=== PATIENT | male | born 1995 | race Native Hawaiian/Other Pacific Islander ===

== ENCOUNTER 2017-04-26 11:55 | Observation (INO) | payer MEDICAID, OTHER ==
--- NOTE | 2017-04-26 12:23 | EDM.PDOC ---
ED HPI GENERAL MEDICAL PROBLEM - General Chief Complaint: Abdominal Pain Stated Complaint: STOMACH BLOCKAGE Time Seen by Provider: 04/26/17 12:10 Source of Information: Reports: Patient, Old Records History Limitations: Reports: No Limitations - History of Present Illness INITIAL COMMENTS - FREE TEXT/NARRATIVE: 22 yo male unable to keep fluids down since last night. No bowel movements or passage of flatus. Has a pHx of bowel obstructions. Is concerned he has this again back. His last surgery for this problem was in [place] at [place]. Has no nausea unless he drinks/eats something. Onset: Gradual Onset Date: 04/25/17 Onset Time: 21:00 Duration: Hour(s):, Intermittent, Waxing/Waning Location: Reports: Abdomen Quality: Reports: Same as Previous Episode Severity: Moderate Improves with: Reports: None Worsens with: Reports: Eating Context: Reports: Other (Hx of bowel obstruction) Associated Symptoms: Reports: Nausea/Vomiting Treatments [employer]: Reports: Other (see below) (None) - Related Data Allergies Allergy/AdvReac Type Severity Reaction Status Date / Time Penicillins Allergy Rash Verified 04/26/17 12:23 Past Medical History - Past Health History Medical/Surgical History: Denies Medical/Surgical History HEENT History: Reports: None Cardiovascular History: Reports: None Respiratory History: Reports: None Gastrointestinal History: Reports: Colon Polyp, Pancreatitis, Other (See Below) Other Gastrointestinal History: FAMILY HX COLON CANCER, RIGHT SIDED ABD PAIN WITH RECTAL BLEEDING, POLYPOSOS Genitourinary History: Reports: None 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 Family Hx colon Ca Dermatologic History: Reports: None - Infectious Disease History Infectious Disease History: Reports: None - Past Surgical History GI Surgical History: Reports: Appendectomy, Cholecystectomy, Colon, Colonoscopy , Other (See Below) Dermatological Surgical History: Reports: Other (See Below) Social & Family History - Family History Family Medical History: Noncontributory GI: Reports: Colon Polyps, Other (See Below) Other GI Family History: Colon Cancer - Tobacco Use Smoking Status *Q: Never Smoker Used Tobacco, but Quit: Yes Month Tobacco Last Used: 12/2015 Second Hand Smoke Exposure: No - Caffeine Use Caffeine Use: Reports: None - Alcohol Use Days Per Week of Alcohol Use: 0 - Recreational Drug Use Recreational Drug Use: No ED ROS GENERAL - Review of Systems Review Of Systems: See Below Constitutional: Reports: No Symptoms HEENT: Reports: No Symptoms Respiratory: Reports: No Symptoms Cardiovascular: Reports: No Symptoms GI/Abdominal: Reports: Abdominal Pain, Nausea, Vomiting. Denies: Black Stool, Bloody Stool, Constipation, Diarrhea, Hematemesis, Hematochezia, Melena, Mucous in Stool, Stool Incontinence : Reports: No Symptoms Musculoskeletal: Reports: No Symptoms Skin: Reports: No Symptoms Neurological: Reports: No Symptoms Psychiatric: Reports: No Symptoms Hematologic/Lymphatic: Reports: No Symptoms ED EXAM, GI/ABD - Physical Exam Exam: See Below Exam Limited By: No Limitations General Appearance: Alert, WD/WN, No Apparent Distress Eyes: Bilateral: Normal Appearance Ears: Normal External Exam, Normal Canal, Hearing Grossly Normal Nose: Normal Inspection, Normal Mucosa, No Blood Throat/Mouth: Normal Inspection, Normal Lips, Normal Oropharynx, Normal Voice, No Airway Compromise Head: Atraumatic, Normocephalic Neck: Normal Inspection, Supple Respiratory/Chest: No Respiratory Distress, Lungs Clear, Normal Breath Sounds, No Accessory Muscle Use Cardiovascular: Regular Rate, Rhythm, No Edema GI/Abdominal Exam: Soft, Abnormal Bowel Sounds (decreased bowel sounds. ? mild distention. ) Back Exam: Normal Inspection, Full Range of Motion Extremities: Normal Inspection, Non-Tender, No Pedal Edema Neurological: Alert, Oriented, CN II-XII Intact, Normal Cognition, No Motor/ Sensory Deficits Psychiatric: Normal Affect, Normal Mood Skin Exam: Warm, Dry, Intact, Normal Color, No Rash Lymphatic: No Adenopathy Course - Vital Signs Text/Narrative:: Flat/upright abdomen X-rays-a few air/fluid levels. Dr. Arrieta called @ 1248h, [place] Colorectal surgeon(not available this week). LR IV @ 150 ml/h, Reglan 10 mg IV, Dilaudid 0.[address] abd/pelvis with contrast-? paralytic ileus, not clearly an obstruction Phone message left for Dr. Quan @ 1513h - Orders/Labs/Meds Orders: Active Orders 24 hr Category Date Time Status Lactated Ringers [Ringers, Lactated] 1,000 ml Med 04/26/17 13:00 Active IV ASDIRECTED Medication Orders Lactated Ringer's (Ringers, Lactated) 1,000 mls @ 150 mls/hr IV ASDIRECTED TANO Last Admin: 04/26/17 13:44 Dose: 150 mls/hr Labs: Laboratory Tests 04/26/17 04/26/17 04/26/17 Range/Units 13:28 13:28 13:28 WBC 13.0 H (4.5-12.0) X10-3/uL RBC 6.26 H (4.30-5.75) x10(6)uL Hgb 18.0 H D (11.5-15.5) g/dL Hct 53.7 H D (30.0-51.3) % MCV 85.7 (80-96) fL MCH 28.7 (27.7-33.6) pg MCHC 33.5 (32.2-35.4) g/dL RDW 12.9 (11.5-15.5) % Plt Count 296 (125-369) X10(3)uL Sodium 137 (135-145) mmol/L Potassium 3.8 (3.5-5.3) mmol/L Chloride 103 D (100-110) mmol/L Carbon Dioxide 25 (23-29) mmol/L BUN 13 (5-20) mg/dL Creatinine 1.1 (0.6-1.3) mg/dL Est Cr Clr Drug Dosing TNP Estimated GFR (MDRD) > 60 (>60) BUN/Creatinine Ratio 11.8 (9-20) Glucose 111 (80-116) mg/dL Calcium 9.9 (8.6-10.2) mg/dL Amylase 61 (28-100) U/L Meds: Medications Generic Name Dose Route Start Last Admin Trade Name Freq PRN Reason Stop Dose Admin Lactated Ringer's 1,000 mls @ 150 mls/hr 04/26/17 13:00 04/26/17 13:44 Ringers, Lactated IV 150 mls/hr ASDIRECTED TANO Administration Discontinued Medications Generic Name Dose Route Start Last Admin Trade Name Freq PRN Reason Stop Dose Admin Hydromorphone HCl 0.5 mg 04/26/17 13:12 04/26/17 13:45 Dilaudid IVPUSH 04/26/17 13:13 0.5 mg ONETIME ONE Administration Iopamidol 100 ml 04/26/17 13:32 04/26/17 13:50 Isovue-370 (76%) IV 04/26/17 13:33 100 ml . DIRECTED ONE Administration Metoclopramide HCl 10 mg 04/26/17 12:52 04/26/17 13:45 Reglan IVPUSH 04/26/17 12:53 10 mg ONETIME ONE Administration Departure - Departure Time of Disposition: 15:18 Disposition: Refer to Observation Condition: Fair Clinical Impression: Paralytic ileus - Discharge Information - My Orders Last 24 Hours: My Active Orders 04/26/17 13:00 Lactated Ringers [Ringers, Lactated] 1,000 ml IV ASDIRECTED - Assessment/Plan Last 24 Hours: My Active Orders 04/26/17 13:00 Lactated Ringers [Ringers, Lactated] 1,000 ml IV ASDIRECTED
[2017-04-26] MEDS ORDERED: Metoclopramide 10 MG/2 ML SDV IVPUSH ONE (12:52)
[2017-04-26] MEDS ORDERED: HYDROmorphone 2 MG/ML SDV IVPUSH ONE (13:12)
[2017-04-26] MEDS ORDERED: Iopamidol 755 Mg/ML 100 ML Bottle IV ONE (13:32)
[2017-04-26] MEDS: Lactated Ringers 1,000 ML IV SCH ×2 (13:44→20:34)
--- NOTE | 2017-04-26 14:55 | CR ---
INDICATION: Vomiting, concern about bowel obstruction. ABDOMEN: Four images of the abdomen in supine and upright projections were obtained 04/26/2017 and compared with the previous examination of 10/16/2016, revealing air-fluid levels in proximal and mid to distal small bowel loops. No free air was identified. The small bowel loops appear to be slightly distended. Findings may be on the basis of a mechanically obstructive process of the mid to distal small bowel, although a paralytic ileus or even gastroenteritis could be present. Findings should be correlated clinically. Clips are noted compatible with cholecystectomy. No definite organomegaly or mass lesion was seen. A minimal dextroconvex scoliosis of the lumbar spine is noted. Evidence of previous surgery is noted in the area of the right lower quadrant - right pelvis and right mid pelvis. IMPRESSION: Distended loops of small bowel with air-fluid levels in a stepladder fashion may represent a mechanically obstructive process, although other etiology cannot be excluded. CT examination may be helpful for further evaluation. MTDD
--- NOTE | 2017-04-26 15:11 | CT ---
INDICATION: Vomiting, possible bowel obstruction. CT ABDOMEN AND PELVIS WITH CONTRAST: Spiral 2.5-mm axial sections were obtained through the abdomen and pelvis with oral and IV contrast (100 mL Isovue -370 at 1.8 mL per second), with sagittal and coronal reconstructions 04/26/2017 , and compared with 10/16/2016. Total Exam DLP = 1002.48 mGy-cm. The lower lung johnston and pleural spaces visualized appear normal. There is again noted a geographic fatty infiltration of the liver with a greater amount of fatty infiltration noted (less fatty sparing seen). No other focal abnormality of the liver was identified. Fatty infiltration if fairly generalized. The adrenal glands, kidneys, spleen, and pancreas appear normal. The common bile duct is normal in caliber. Clips compatible with cholecystectomy are noted , with absence of the gallbladder. No retroperitoneal masses were seen. Retroperitoneal lymphadenopathy is mild and nonspecific. The appendix is not visualized, compatible with appendectomy. Evidence of multiple surgeries is noted in the pelvis. Distended loops of small bowel are noted beyond the proximal small bowel with air-fluid levels, or simply distended with fluid. No free air is noted. The distended bowel continues into the area of the rectum, which is also distended with fluid. This appearance is felt to be most compatible with severe gastroenteritis. Findings should be correlated clinically in that regard. There are areas of narrowing at post-surgical site in the right lower quadrant. One loop of bowel appears to end in a blind loop, in this patient with reversal of a previous ileostomy. In that area, there is some fat stranding, likely on the basis of the previous surgery. There is also some minimal fluid and fat stranding in the central lower pelvis, which was present previously and likely represents scarring from previous surgery also. No other organomegaly, mass lesions, or free fluid collections were identified in the abdomen or pelvis. It is also noted the patient is post-colectomy with small bowel anastomosis to the rectal area. IMPRESSION: 1. Extensive distention of the small bowel loops and somewhat distended rectum to which they are anastomosed, in this post-colectomy patient, with reversal of previous ileostomy. The distended bowel with air-fluid levels may be on the basis of a process such as gastroenteritis and should be correlated clinically. A mechanically obstructive process is felt to be unlikely with this appearance - no free air was seen. 2. Post-surgical reversal of ileostomy. 3. Post-appendectomy. 4. Fatty infiltration of the liver with more extensive fatty infiltration than was present on the previous study of September 2016. 5. No definite evidence of pancreatitis. 5. Post-cholecystectomy. CT PELVIS: Examination of the pelvis was obtained by CT, as noted above, revealing evidence of colectomy with small bowel anastomosis to the rectum and reversal of ileostomy in the right lower quadrant. Report was called to Dr. Zhang at 1438 hours, 04/26/2017. [facility]
[2017-04-26] MEDS ORDERED: Ondansetron 4 MG/2 ML SDV IV PRN (15:20)
[2017-04-26] MEDS: HYDROmorphone 2 MG/ML SDV IVPUSH PRN ×3 (15:43→23:48)
--- NOTE | 2017-04-26 18:53 | PCM.HP ---
H&P History of Present Illness - General Date of Service: 04/26/17 Admit Problem/Dx: Admission Diagnosis/Problem Admission Diagnosis/Problem Paralytic ileus Source of Information: Patient History Limitations: Reports: No Limitations - History of Present Illness Initial Comments - Free Text/Narative: This is a 22-year-old male patient with a history of complete colectomy and small bowel obstruction in the past. He's also pancreatitis in the past. Started vomiting and having abdominal pain last night. He thought it would go away but it continued today and he was seen in the ER. He had a CT scan with contrast and then he started having diarrhea which may feels somewhat better. He denies fevers, chills, hematochezia, melena, dysuria, pyuria, hematuria. Abdominal pain is diffuse and it does not radiate anywhere. - Related Data Allergies/Adverse Reactions: Allergies Allergy/AdvReac Type Severity Reaction Status Date / Time Penicillins Allergy Rash Verified 04/26/17 12:23 Home Medications: Home Meds Multivitamin/Iron/Folic Acid [Centrum Adults Tablet] 1 tab PO DAILY 04/26/17 [ History] Past Medical History - Past Health History Medical/Surgical History: Denies Medical/Surgical History HEENT History: Reports: None Cardiovascular History: Reports: None Respiratory History: Reports: None Gastrointestinal History: Reports: Colon Polyp, Pancreatitis, Other (See Below) Other Gastrointestinal History: FAMILY HX COLON CANCER, RIGHT SIDED ABD PAIN WITH RECTAL BLEEDING, POLYPOSOS Genitourinary History: Reports: None 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 Family Hx colon Ca Dermatologic History: Reports: None - Infectious Disease History Infectious Disease History: Reports: None - Past Surgical History Head Surgeries/Procedures: Reports: None GI Surgical History: Reports: Appendectomy, Cholecystectomy, Colon, Colonoscopy , Other (See Below) Other GI Surgeries/Procedures: temporary colostomy with reversal, drainage tube in left upper buttock then removed Dermatological Surgical History: Reports: Other (See Below) Social & Family History - Family History Family Medical History: Noncontributory GI: Reports: Colon Polyps, Other (See Below) Other GI Family History: Colon Cancer - Tobacco Use Smoking Status *Q: Never Smoker Used Tobacco, but Quit: Yes Month Tobacco Last Used: 12/2015 Second Hand Smoke Exposure: No - Caffeine Use Caffeine Use: Reports: None Other Caffeine Use: 2 cups coffeee in am - Alcohol Use Days Per Week of Alcohol Use: 0 - Recreational Drug Use Recreational Drug Use: No H&P Review of Systems - Review of Systems: Review Of Systems: See Below General: Reports: No Symptoms HEENT: Reports: No Symptoms Pulmonary: Reports: No Symptoms Cardiovascular: Reports: No Symptoms Gastrointestinal: Reports: Abdominal Pain, Diarrhea, Vomiting Genitourinary: Reports: No Symptoms Musculoskeletal: Reports: No Symptoms Skin: Reports: No Symptoms Psychiatric: Reports: No Symptoms Neurological: Reports: No Symptoms Hematologic/Lymphatic: Reports: No Symptoms Immunologic: Reports: No Symptoms Exam - Exam Exam: See Below - Vital Signs Vital Signs: Last Vital Signs Temp 97.5 F 04/26/17 15:50 Pulse 88 04/26/17 15:50 Resp 17 04/26/17 15:50 BP 135/98 H 04/26/17 15:50 Pulse Ox 97 04/26/17 15:50 Weight: 201 lb 6.4 oz - Exam General: Alert, Oriented, Cooperative, Mild Distress HEENT: EACs Clear, Hearing Intact, Posterior Pharynx Clear, Pupils Equal, TMs Clear Neck: Supple, Trachea Midline Lungs: Clear to Auscultation, Normal Respiratory Effort. No: Crackles, Rales, Rhonchi, Rub Cardiovascular: Regular Rate, Regular Rhythm. No: Systolic Murmur, Diastolic Murmur GI/Abdominal Exam: Other (Abdomen is soft with mild tenderness to palpation. No guarding, rebound. Hypoactive bowel sounds.) Back Exam: Normal Inspection, Full Range of Motion, NT Extremities: Normal Inspection, Normal Range of Motion, Non-Tender, No Pedal Edema Neuro Extensive - Mental Status: Alert, Oriented x3, Normal Mood/Affect, Normal Cognition, Memory Intact Neuro Extensive - Motor, Sensory, Reflexes: Normal Gait Psychiatric: Alert, Normal Affect, Normal Mood - Patient Data Result Diagrams: 04/26/17 13:28 04/26/17 13:28 *Q Meaningful Use (ADM) - VTE *Q VTE Criteria *Q: - Stroke *Q Stroke Criteria *Q: - AMI *Q AMI Criteria *Q: - Problem List (1) Diffuse abdominal pain SNOMED Code(s): 413012660, 629281458 ICD Code: R10.84 - GENERALIZED ABDOMINAL PAIN Status: Acute Current Visit : No (2) Nausea & vomiting SNOMED Code(s): 62536961 ICD Code: R11.2 - NAUSEA WITH VOMITING, UNSPECIFIED Status: Acute Current Visit: No Qualifiers: Vomiting type: unspecified Vomiting Intractability: non-intractable Qualified Code(s): R11.2 - Nausea with vomiting, unspecified Problem List Initiated/Reviewed/Updated: Yes Orders Last 24hrs: Active Orders 24 hr Category Date Time Status Notify Provider Consults [RC] ASDIRECTED Care 04/26/17 18:47 Ordered Consult to Physician [CONS] Routine Cons 04/26/17 18:47 Ordered AMYLASE [CHEM] Routine Lab 04/26/17 18:46 Ordered CBC WITH AUTO DIFF [HEME] AM Lab 04/27/17 05:11 Ordered COMPREHENSIVE METABOLIC PN,CMP [CHEM] AM Lab 04/27/17 05:11 Ordered UA W/MICROSCOPIC [URIN] Routine Lab 04/26/17 18:47 Uncollected Medication Orders Hydromorphone HCl (Dilaudid) 0.5 mg IVPUSH Q2H PRN PRN Reason: Pain (severe 7-10) Last Admin: 04/26/17 18:02 Dose: 0.5 mg Admin: 04/26/17 15:43 Dose: 0.5 mg Lactated Ringer's (Ringers, Lactated) 1,000 mls @ 150 mls/hr IV ASDIRECTED [facility] Last Admin: 04/26/17 13:44 Dose: 150 mls/hr Ondansetron HCl (Zofran) 4 mg IV Q6H PRN PRN Reason: Nausea/Vomiting Last Admin: 04/26/17 15:43 Dose: 4 mg Assessment/Plan Comment:: 1. Admit for observation. 2. Nothing by mouth with IV fluids. 3. Pain control with IV fluids and antinausea medicines. 4. Review the CT and x-ray and they think either paralytic ileus or gastroenteritis. CT shows more likely gastroenteritis. 5. Full code. 6. Up ad nick. 7. Surgical consult has of past small bowel obstruction, pancreatitis and colectomy.
--- NOTE | 2017-04-26 19:31 | PCM.CONS ---
H&P History of Present Illness - General Date of Service: 04/26/17 Admit Problem/Dx: Admission Diagnosis/Problem Admission Diagnosis/Problem Paralytic ileus Source of Information: Patient - History of Present Illness Initial Comments - Free Text/Narative: Pt admitted with a one day hx of abd pain. Started after he had a meal consisting of raw carrots and cauliflower. Was diffuse in nature. Accompanied by multiple episodes of vomiting, having 3 yesterday as well as 5 today. Was light brown in color. Had a ct scan today which demonstrated some distended intestine, consistent with a possible gastroenteritis. Had some diarrhea today after admission and reports feeling slightly better. Some nausea with ice chips. Slight leukocytosis on labs but otherwise unremarkable. Had a episode of partial sbo in Jun. He is sp a subtotal colectomy for polyposis syndrome. - Related Data Allergies/Adverse Reactions: Allergies Allergy/AdvReac Type Severity Reaction Status Date / Time Penicillins Allergy Rash Verified 04/26/17 12:23 Home Medications: Home Meds Multivitamin/Iron/Folic Acid [Centrum Adults Tablet] 1 tab PO DAILY 04/26/17 [ History] Past Medical History - Past Health History Medical/Surgical History: Denies Medical/Surgical History HEENT History: Reports: None Cardiovascular History: Reports: None Respiratory History: Reports: None Gastrointestinal History: Reports: Colon Polyp, Pancreatitis, Other (See Below) Other Gastrointestinal History: FAMILY HX COLON CANCER, RIGHT SIDED ABD PAIN WITH RECTAL BLEEDING, POLYPOSOS Genitourinary History: Reports: None 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 Family Hx colon Ca Dermatologic History: Reports: None - Infectious Disease History Infectious Disease History: Reports: None - Past Surgical History Head Surgeries/Procedures: Reports: None GI Surgical History: Reports: Appendectomy, Cholecystectomy, Colon, Colonoscopy , Other (See Below) Other GI Surgeries/Procedures: temporary colostomy with reversal, drainage tube in left upper buttock then removed Dermatological Surgical History: Reports: Other (See Below) Social & Family History - Family History Family Medical History: Noncontributory GI: Reports: Colon Polyps, Other (See Below) Other GI Family History: Colon Cancer - Tobacco Use Smoking Status *Q: Never Smoker Used Tobacco, but Quit: Yes Month Tobacco Last Used: 12/2015 Second Hand Smoke Exposure: No - Caffeine Use Caffeine Use: Reports: None Other Caffeine Use: 2 cups coffeee in am - Alcohol Use Days Per Week of Alcohol Use: 0 - Recreational Drug Use Recreational Drug Use: No H&P Review of Systems - Review of Systems: Review Of Systems: See Below General: Reports: No Symptoms. Denies: Fever, Chills, Fatigue HEENT: Reports: No Symptoms Pulmonary: Reports: No Symptoms Cardiovascular: Reports: No Symptoms Gastrointestinal: Reports: Abdominal Pain, Diarrhea, Nausea, Vomiting Genitourinary: Reports: No Symptoms Musculoskeletal: Reports: No Symptoms Exam - Exam Exam: See Below - Vital Signs Vital Signs: Last Vital Signs Temp 36.4 C 04/26/17 15:50 Pulse 88 04/26/17 15:50 Resp 17 04/26/17 15:50 BP 135/98 H 04/26/17 15:50 Pulse Ox 97 04/26/17 15:50 Weight: 91.354 kg - Exam General: Alert, Oriented, Cooperative. No: Mild Distress Lungs: Clear to Auscultation, Normal Respiratory Effort Cardiovascular: Regular Rate, Regular Rhythm GI/Abdominal Exam: Normal Bowel Sounds, Soft, Non-Tender, No Organomegaly, No Distention Rectal (Males) Exam: Deferred Extremities: Normal Inspection, Normal Range of Motion - Patient Data Result Diagrams: 04/26/17 13:28 04/26/17 13:28 Consult PN Assessment/Plan Procedures: Procedures ASSAY OF AMYLASE (07/23/16) COLONOSCOPY AND BIOPSY (01/19/16) COMPLETE CBC W/AUTO DIFF WBC (07/23/16) COMPREHEN METABOLIC PANEL (07/23/16) CT ABD & PELV W/CONTRAST (07/23/16) CULTURE SCREEN ONLY (03/19/17) ECHO EXAM OF ABDOMEN (04/11/16) EMERGENCY DEPT VISIT (11/04/16) EMERGENCY DEPT VISIT (07/23/16) EMERGENCY DEPT VISIT (05/04/16) EMERGENCY DEPT VISIT (04/17/16) EMERGENCY DEPT VISIT (04/14/16) EMERGENCY DEPT VISIT (04/11/16) EMERGENCY DEPT VISIT (06/19/15) EMERGENCY DEPT VISIT (11/10/14) EXC H-F-NK-SP B9+CHRIS >4 CM (01/28/16) EXC TR-EXT B9+CHRIS 2.1-3CM/< (01/28/16) HYDRATE IV INFUSION ADD-ON (07/23/16) INFLUENZA ASSAY W/OPTIC (10/08/15) LAPAROSCOPIC CHOLECYSTECTOMY (11/02/16) MANUAL THERAPY 1/> REGIONS (02/14/17) MECHANICAL TRACTION THERAPY (02/14/17) NASAL/OROGASTRIC W/TUBE PLMT (07/23/16) PT EVAL LOW COMPLEX 20 MIN (02/14/17) ROUTINE VENIPUNCTURE (07/23/16) STREP A AG IA (03/19/17) THER/PROPH/DIAG INJ IV PUSH (07/23/16) THER/PROPH/DIAG INJ SC/IM (04/11/16) TISSUE EXAM BY PATHOLOGIST (11/02/16) TISSUE EXAM BY PATHOLOGIST (01/19/16) TX/PRO/DX INJ NEW DRUG ADDON (07/23/16) TX/PRO/DX INJ SAME DRUG LOSS PREVENTION AGENT (07/23/16) URINALYSIS AUTO W/SCOPE (01/20/16) (1) Ileus, unspecified SNOMED Code(s): 04754826 Code(s): K56.7 - ILEUS, UNSPECIFIED Current Visit: Yes Problem List Initiated/Reviewed/Updated: Yes My Orders Last 24 Hours: My Active Orders 04/26/17 19:20 hydrOXYzine HCl [Vistaril] 50 mg IM Q6H PRN Plan: would keep npo if continues to vomit would place NGT Have written for vistaril due to itching from the dilaudid. Will follow
[2017-04-26] MEDS: hydrOXYzine HCl 50 MG/ML SDV IM PRN (19:52)
[2017-04-26] MEDS ORDERED: Sodium Chloride 0.9% 10 ML Syringe FLUSH PRN (19:54)
[2017-04-26] MEDS ORDERED: Lidocaine 2% Jelly 5 ML Urojet MUCMEM ONE (19:55)
[2017-04-27] MEDS: Lactated Ringers 1,000 ML IV SCH (03:19)
[2017-04-27] MEDS: HYDROmorphone 2 MG/ML SDV IVPUSH PRN (03:24)
--- NOTE | 2017-04-27 08:59 | PCM.PN ---
- General Info Date of Service: 04/27/17 Admission Dx/Problem (Free Text): Patient states that his abdominal pain still present but is much improved today. He says he had 2 BMs last night the last one around 2-3 AM. He states there was some chunks in it. He denies fevers or chills. - Patient Data Vitals - Most Recent: Last Vital Signs Temp 98.4 F 04/27/17 04:00 Pulse 76 04/27/17 04:00 Resp 18 04/27/17 04:00 BP 109/61 04/27/17 04:00 Pulse Ox 97 04/27/17 04:00 Weight - Most Recent: 206 lb 3.2 oz I&O - Last 24 Hours: Intake & Output 04/26/17 04/27/17 04/27/17 22:59 06:59 14:59 Intake Total 1200 1153 Output Total 630 250 Balance 570 903 Lab Results Last 24 Hours: Laboratory Results - last 24 hr 04/27/17 04/27/17 04/27/17 Range/Units 02:45 06:41 06:41 WBC 7.4 (4.5-12.0) X10-3/uL RBC 5.02 (4.30-5.75) x10(6)uL Hgb 14.5 D (11.5-15.5) g/dL Hct 43.1 D (30.0-51.3) % MCV 85.8 (80-96) fL MCH 28.8 (27.7-33.6) pg MCHC 33.5 (32.2-35.4) g/dL RDW 12.8 (11.5-15.5) % Plt Count 241 (125-369) X10(3)uL MPV 8.8 (7.4-10.4) fL Neut % (Auto) 60.1 (46-82) % Lymph % (Auto) 28.3 (13-37) % [place] % (Auto) 7.8 (4-12) % Eos % (Auto) 3 (1.0-5.0) % Baso % (Auto) 1 (0-2) % Neut # (Auto) 4.5 (1.6-8.3) # Lymph # (Auto) 2.1 (0.6-5.0) # [place] # (Auto) 0.6 (0.0-1.3) # Eos # (Auto) 0.2 (0.0-0.8) # Baso # (Auto) 0.0 (0.0-0.2) # Sodium 138 (135-145) mmol/L Potassium 3.4 L (3.5-5.3) mmol/L Chloride 103 (100-110) mmol/L Carbon Dioxide 28 (23-29) mmol/L BUN 15 (5-20) mg/dL Creatinine 1.0 (0.6-1.3) mg/dL Est Cr Clr Drug Dosing 125.02 mL/min Estimated GFR (MDRD) > 60 (>60) BUN/Creatinine Ratio 15.0 (9-20) Glucose 91 (80-116) mg/dL Calcium 8.9 (8.6-10.2) mg/dL Total Bilirubin 1.0 (0.1-1.3) mg/dL AST 40 H D (5-27) IU/L ALT 55 H D (14-26) IU/L Alkaline Phosphatase 53 L (56-112) IU/L Total Protein 6.9 (6.0-8.0) g/dL Albumin 3.9 (3.5-5.2) g/dL Globulin 3.0 g/dL Albumin/Globulin Ratio 1.3 Urine Color Yellow (YELLOW) Urine Appearance Clear (CLEAR) Urine pH 5.0 (5.0-6.5) Ur Specific [place] 1.020 (1.010-1.025) Urine Protein 30 H (NEGATIVE) mg/dL Urine Glucose (UA) Normal (NEGATIVE) mg/dL Urine Ketones Negative (NEGATIVE) mg/dL Urine Occult Blood Moderate H (NEGATIVE) Urine Nitrite Negative (NEGATIVE) Urine Bilirubin Negative (NEGATIVE) Urine Urobilinogen 1 H (NEGATIVE) mg/dL Ur Leukocyte Esterase Negative (NEGATIVE) Urine RBC 5-10 (0) Urine WBC 0-5 (0) Ur Squamous Epith Cells Occasional (NS,R,O) Urine Bacteria Few H (NS) Fine Granular Casts Rare H (NS) Urine Mucus Moderate H (NS) Med Orders - Current: Current Medications Hydromorphone HCl (Dilaudid) 0.5 mg IVPUSH Q2H PRN PRN Reason: Pain (severe 7-10) Last Admin: 04/27/17 03:24 Dose: 0.5 mg Hydroxyzine HCl (Vistaril) 50 mg IM Q6H PRN PRN Reason: Itching Last Admin: 04/26/17 19:52 Dose: 50 mg Lactated Ringer's (Ringers, Lactated) 1,000 mls @ 150 mls/hr IV ASDIRECTED [facility] Last Admin: 04/27/17 03:19 Dose: 150 mls/hr Ondansetron HCl (Zofran) 4 mg IV Q6H PRN PRN Reason: Nausea/Vomiting Last Admin: 04/26/17 15:43 Dose: 4 mg Sodium Chloride (Saline Flush) 10 ml FLUSH ASDIRECTED PRN PRN Reason: Keep Vein Open Last Admin: 04/26/17 20:34 Dose: 10 ml Discontinued Medications Hydromorphone HCl (Dilaudid) 0.5 mg IVPUSH ONETIME ONE Stop: 04/26/17 13:13 Last Admin: 04/26/17 13:45 Dose: 0.5 mg Iopamidol (Isovue-370 (76%)) 100 ml IV . DIRECTED ONE Stop: 04/26/17 13:33 Last Admin: 04/26/17 13:50 Dose: 100 ml Lidocaine HCl (Xylocaine 2% Jelly) 5 ml MUCMEM ONETIME ONE Stop: 04/26/17 19:56 Metoclopramide HCl (Reglan) 10 mg IVPUSH ONETIME ONE Stop: 04/26/17 12:53 Last Admin: 04/26/17 13:45 Dose: 10 mg - Exam General: Alert, Oriented, Cooperative Lungs: Normal Respiratory Effort GI/Abdominal Exam: Other (Abdomen is soft, mildly tender but improved, hypoactive bowel sounds. No rebound or guarding.) - Problem List & Annotations (1) Diffuse abdominal pain SNOMED Code(s): 780486271, 408917615 Code(s): R10.84 - GENERALIZED ABDOMINAL PAIN Status: Acute Current Visit : No (2) Nausea & vomiting SNOMED Code(s): 82818469 Code(s): R11.2 - NAUSEA WITH VOMITING, UNSPECIFIED Status: Acute Current Visit: No Qualifiers: Vomiting type: unspecified Vomiting Intractability: non-intractable Qualified Code(s): R11.2 - Nausea with vomiting, unspecified (3) Hypokalemia SNOMED Code(s): 17107960 Code(s): E87.6 - HYPOKALEMIA Status: Acute Current Visit: Yes - Problem List Review Problem List Initiated/Reviewed/Updated: Yes - My Orders Last 24 Hours: My Active Orders 04/26/17 18:47 Notify Provider Consults [RC] ASDIRECTED Consult to Physician [CONS] Routine 04/26/17 19:54 Sodium Chloride 0.9% [Saline Flush] 10 ml FLUSH ASDIRECTED PRN - Plan Plan:: 1. Add some potassium to the IV. 2. Wait for Dr. Marsh's recommendation on whether we should start clear liquids or continue bowel rest.
[2017-04-27] MEDS: NS + KCl 20mEq/L 1,000 ML IV SCH ×2 (10:04→16:51)
--- NOTE | 2017-04-27 10:41 | PCM.SURGPN ---
- General Info Date of Service: 04/27/17 - Review of Systems Gastrointestinal: Reports: Abdominal Pain, Other (did have two bowel movements as well as some flatus. mild amount of abd pain better. ) - Patient Data Vitals - Most Recent: Last Vital Signs Temp 36.8 C 04/27/17 08:00 Pulse 74 04/27/17 08:00 Resp 16 04/27/17 08:00 BP 109/61 04/27/17 08:00 Pulse Ox 97 04/27/17 08:00 Weight - Most Recent: 93.531 kg I&O - Last 24 Hours: Intake & Output 04/26/17 04/27/17 04/27/17 22:59 06:59 14:59 Intake Total 1200 1153 Output Total 630 250 Balance 570 903 Lab Results Last 24 Hrs: Laboratory Results - last 24 hr 04/27/17 04/27/17 04/27/17 Range/Units 02:45 06:41 06:41 WBC 7.4 (4.5-12.0) X10-3/uL RBC 5.02 (4.30-5.75) x10(6)uL Hgb 14.5 D (11.5-15.5) g/dL Hct 43.1 D (30.0-51.3) % MCV 85.8 (80-96) fL MCH 28.8 (27.7-33.6) pg MCHC 33.5 (32.2-35.4) g/dL RDW 12.8 (11.5-15.5) % Plt Count 241 (125-369) X10(3)uL MPV 8.8 (7.4-10.4) fL Neut % (Auto) 60.1 (46-82) % Lymph % (Auto) 28.3 (13-37) % [place] % (Auto) 7.8 (4-12) % Eos % (Auto) 3 (1.0-5.0) % Baso % (Auto) 1 (0-2) % Neut # (Auto) 4.5 (1.6-8.3) # Lymph # (Auto) 2.1 (0.6-5.0) # [place] # (Auto) 0.6 (0.0-1.3) # Eos # (Auto) 0.2 (0.0-0.8) # Baso # (Auto) 0.0 (0.0-0.2) # Sodium 138 (135-145) mmol/L Potassium 3.4 L (3.5-5.3) mmol/L Chloride 103 (100-110) mmol/L Carbon Dioxide 28 (23-29) mmol/L BUN 15 (5-20) mg/dL Creatinine 1.0 (0.6-1.3) mg/dL Est Cr Clr Drug Dosing 125.02 mL/min Estimated GFR (MDRD) > 60 (>60) BUN/Creatinine Ratio 15.0 (9-20) Glucose 91 (80-116) mg/dL Calcium 8.9 (8.6-10.2) mg/dL Total Bilirubin 1.0 (0.1-1.3) mg/dL AST 40 H D (5-27) IU/L ALT 55 H D (14-26) IU/L Alkaline Phosphatase 53 L (56-112) IU/L Total Protein 6.9 (6.0-8.0) g/dL Albumin 3.9 (3.5-5.2) g/dL Globulin 3.0 g/dL Albumin/Globulin Ratio 1.3 Urine Color Yellow (YELLOW) Urine Appearance Clear (CLEAR) Urine pH 5.0 (5.0-6.5) Ur Specific [place] 1.020 (1.010-1.025) Urine Protein 30 H (NEGATIVE) mg/dL Urine Glucose (UA) Normal (NEGATIVE) mg/dL Urine Ketones Negative (NEGATIVE) mg/dL Urine Occult Blood Moderate H (NEGATIVE) Urine Nitrite Negative (NEGATIVE) Urine Bilirubin Negative (NEGATIVE) Urine Urobilinogen 1 H (NEGATIVE) mg/dL Ur Leukocyte Esterase Negative (NEGATIVE) Urine RBC 5-10 (0) Urine WBC 0-5 (0) Ur Squamous Epith Cells Occasional (NS,R,O) Urine Bacteria Few H (NS) Fine Granular Casts Rare H (NS) Urine Mucus Moderate H (NS) Med Orders - Current: Current Medications Hydromorphone HCl (Dilaudid) 0.5 mg IVPUSH Q2H PRN PRN Reason: Pain (severe 7-10) Last Admin: 04/27/17 03:24 Dose: 0.5 mg Hydroxyzine HCl (Vistaril) 50 mg IM Q6H PRN PRN Reason: Itching Last Admin: 04/26/17 19:52 Dose: 50 mg Potassium Chloride/Sodium Chloride (Normal Saline With 20 Meq Kcl) 1,000 mls @ 150 mls/hr IV Q6H [facility] Last Admin: 04/27/17 10:04 Dose: 150 mls/hr Ondansetron HCl (Zofran) 4 mg IV Q6H PRN PRN Reason: Nausea/Vomiting Last Admin: 04/26/17 15:43 Dose: 4 mg Sodium Chloride (Saline Flush) 10 ml FLUSH ASDIRECTED PRN PRN Reason: Keep Vein Open Last Admin: 04/26/17 20:34 Dose: 10 ml Discontinued Medications Hydromorphone HCl (Dilaudid) 0.5 mg IVPUSH ONETIME ONE Stop: 04/26/17 13:13 Last Admin: 04/26/17 13:45 Dose: 0.5 mg Lactated Ringer's (Ringers, Lactated) 1,000 mls @ 150 mls/hr IV ASDIRECTED [facility] Last Admin: 04/27/17 03:19 Dose: 150 mls/hr Iopamidol (Isovue-370 (76%)) 100 ml IV . DIRECTED ONE Stop: 04/26/17 13:33 Last Admin: 04/26/17 13:50 Dose: 100 ml Lidocaine HCl (Xylocaine 2% Jelly) 5 ml MUCMEM ONETIME ONE Stop: 04/26/17 19:56 Metoclopramide HCl (Reglan) 10 mg IVPUSH ONETIME ONE Stop: 04/26/17 12:53 Last Admin: 04/26/17 13:45 Dose: 10 mg - Exam General: Alert, Oriented, Cooperative, No Acute Distress Lungs: Clear to Auscultation, Normal Respiratory Effort Cardiovascular: Regular Rate, Regular Rhythm GI/Abdominal Exam: Soft, Tender (epigastrium ), Abnormal Bowel Sounds ( hypoactive ). No: Distended, Guarding, Rigid, Rebound - Problem List & Annotations (1) Ileus, unspecified SNOMED Code(s): 49961316 Code(s): K56.7 - ILEUS, UNSPECIFIED Status: Acute Current Visit: Yes - Problem List Review Problem List Initiated/Reviewed/Updated: Yes - My Orders Last 24 Hours: Active Orders 24 hr Category Date Time Status Notify Provider Consults [RC] ASDIRECTED Care 04/26/17 18:47 Active Consult to Physician [CONS] Routine Cons 04/26/17 18:47 Ordered NS + KCl 20mEq/L [Normal Saline with 20 mEq KCl] 1,000 Med 04/27/17 09:00 Active ml IV Q6H Sodium Chloride 0.9% [Saline Flush] Med 04/26/17 19:54 Active 10 ml FLUSH ASDIRECTED PRN hydrOXYzine HCl [Vistaril] Med 04/26/17 19:20 Active 50 mg IM Q6H PRN Medication Orders Hydromorphone HCl (Dilaudid) 0.5 mg IVPUSH Q2H PRN PRN Reason: Pain (severe 7-10) Last Admin: 04/27/17 03:24 Dose: 0.5 mg Admin: 04/26/17 23:48 Dose: 0.5 mg Admin: 04/26/17 18:02 Dose: 0.5 mg Admin: 04/26/17 15:43 Dose: 0.5 mg Hydroxyzine HCl (Vistaril) 50 mg IM Q6H PRN PRN Reason: Itching Last Admin: 04/26/17 19:52 Dose: 50 mg Potassium Chloride/Sodium Chloride (Normal Saline With 20 Meq Kcl) 1,000 mls @ 150 mls/hr IV Q6H [facility] Last Admin: 04/27/17 10:04 Dose: 150 mls/hr Ondansetron HCl (Zofran) 4 mg IV Q6H PRN PRN Reason: Nausea/Vomiting Last Admin: 04/26/17 15:43 Dose: 4 mg Sodium Chloride (Saline Flush) 10 ml FLUSH ASDIRECTED PRN PRN Reason: Keep Vein Open Last Admin: 04/26/17 20:34 Dose: 10 ml - Assessment Assessment (Free Text/Narrative):: slight improvement. K is down - Plan Plan (Free Text/Narrative):: would fix K continue NPO until the tomorrow.
[2017-04-27] MEDS: hydrOXYzine HCl 50 MG/ML SDV IM PRN (23:55)
[2017-04-28] MEDS: NS + KCl 20mEq/L 1,000 ML IV SCH ×2 (00:19→07:05)
--- NOTE | 2017-04-28 08:24 | PCM.SURGPN ---
- General Info Date of Service: 04/28/17 Functional Status: Reports: Pain Controlled, Tolerating Diet, Ambulating, Urinating - Review of Systems Pulmonary: Reports: No Symptoms Cardiovascular: Reports: No Symptoms Gastrointestinal: Reports: No Symptoms, Flatus - Patient Data Vitals - Most Recent: Last Vital Signs Temp 36.6 C 04/28/17 00:00 Pulse 80 04/28/17 00:00 Resp 16 04/28/17 00:00 BP 136/88 04/28/17 00:00 Pulse Ox 97 04/28/17 00:00 Weight - Most Recent: 93.168 kg I&O - Last 24 Hours: Intake & Output 04/27/17 04/28/17 04/28/17 22:59 06:59 14:59 Intake Total 2263 1208 Output Total 500 880 Balance 1763 328 Med Orders - Current: Current Medications Hydromorphone HCl (Dilaudid) 0.5 mg IVPUSH Q2H PRN PRN Reason: Pain (severe 7-10) Last Admin: 04/27/17 03:24 Dose: 0.5 mg Hydroxyzine HCl (Vistaril) 50 mg IM Q6H PRN PRN Reason: Itching Last Admin: 04/27/17 23:55 Dose: 50 mg Ondansetron HCl (Zofran) 4 mg IV Q6H PRN PRN Reason: Nausea/Vomiting Last Admin: 04/26/17 15:43 Dose: 4 mg Sodium Chloride (Saline Flush) 10 ml FLUSH ASDIRECTED PRN PRN Reason: Keep Vein Open Last Admin: 04/26/17 20:34 Dose: 10 ml Discontinued Medications Hydromorphone HCl (Dilaudid) 0.5 mg IVPUSH ONETIME ONE Stop: 04/26/17 13:13 Last Admin: 04/26/17 13:45 Dose: 0.5 mg Lactated Ringer's (Ringers, Lactated) 1,000 mls @ 150 mls/hr IV ASDIRECTED [facility] Last Admin: 04/27/17 03:19 Dose: 150 mls/hr Potassium Chloride/Sodium Chloride (Normal Saline With 20 Meq Kcl) 1,000 mls @ 125 mls/hr IV Q6H [facility] Last Admin: 04/28/17 07:05 Dose: 150 mls/hr Iopamidol (Isovue-370 (76%)) 100 ml IV . DIRECTED ONE Stop: 04/26/17 13:33 Last Admin: 04/26/17 13:50 Dose: 100 ml Lidocaine HCl (Xylocaine 2% Jelly) 5 ml MUCMEM ONETIME ONE Stop: 04/26/17 19:56 Last Admin: 04/27/17 11:13 Dose: Not Given Metoclopramide HCl (Reglan) 10 mg IVPUSH ONETIME ONE Stop: 04/26/17 12:53 Last Admin: 04/26/17 13:45 Dose: 10 mg - Exam General: Alert, Oriented, No Acute Distress Lungs: Clear to Auscultation, Normal Respiratory Effort Cardiovascular: Regular Rate, Regular Rhythm GI/Abdominal Exam: Normal Bowel Sounds, Soft, Non-Tender - Problem List & Annotations (1) Ileus, unspecified SNOMED Code(s): 92756967 Code(s): K56.7 - ILEUS, UNSPECIFIED Status: Resolved Current Visit: Yes - Problem List Review Problem List Initiated/Reviewed/Updated: Yes - My Orders Last 24 Hours: Active Orders 24 hr Category Date Time Status Full Liquid Diet [DIET] Diet 04/28/17 Lunch Ordered Convert IV to Saline Lock [OM.PC] Routine Oth 04/28/17 08:20 Ordered Medication Orders Hydromorphone HCl (Dilaudid) 0.5 mg IVPUSH Q2H PRN PRN Reason: Pain (severe 7-10) Last Admin: 04/27/17 03:24 Dose: 0.5 mg Admin: 04/26/17 23:48 Dose: 0.5 mg Admin: 04/26/17 18:02 Dose: 0.5 mg Admin: 04/26/17 15:43 Dose: 0.5 mg Hydroxyzine HCl (Vistaril) 50 mg IM Q6H PRN PRN Reason: Itching Last Admin: 04/27/17 23:55 Dose: 50 mg Admin: 04/26/17 19:52 Dose: 50 mg Ondansetron HCl (Zofran) 4 mg IV Q6H PRN PRN Reason: Nausea/Vomiting Last Admin: 04/26/17 15:43 Dose: 4 mg Sodium Chloride (Saline Flush) 10 ml FLUSH ASDIRECTED PRN PRN Reason: Keep Vein Open Last Admin: 04/26/17 20:34 Dose: 10 ml - Assessment Assessment (Free Text/Narrative):: ileus resolved. will advance - Plan Plan (Free Text/Narrative):: will advances diet if tolerates could go home today.
--- NOTE | 2017-04-28 09:31 | PCM.PN ---
- General Info Date of Service: 04/28/17 Admission Dx/Problem (Free Text): Patient states his abdominal pain is completely gone. He denies fevers, chills. His passing flatus and stool. - Patient Data Vitals - Most Recent: Last Vital Signs Temp 98 F 04/28/17 00:00 Pulse 80 04/28/17 00:00 Resp 16 04/28/17 00:00 BP 136/88 04/28/17 00:00 Pulse Ox 97 04/28/17 00:00 Weight - Most Recent: 205 lb 6.4 oz I&O - Last 24 Hours: Intake & Output 04/27/17 04/28/17 04/28/17 22:59 06:59 14:59 Intake Total 2263 1208 450 Output Total 500 880 Balance 1763 328 450 Med Orders - Current: Current Medications Hydromorphone HCl (Dilaudid) 0.5 mg IVPUSH Q2H PRN PRN Reason: Pain (severe 7-10) Last Admin: 04/27/17 03:24 Dose: 0.5 mg Hydroxyzine HCl (Vistaril) 50 mg IM Q6H PRN PRN Reason: Itching Last Admin: 04/27/17 23:55 Dose: 50 mg Ondansetron HCl (Zofran) 4 mg IV Q6H PRN PRN Reason: Nausea/Vomiting Last Admin: 04/26/17 15:43 Dose: 4 mg Sodium Chloride (Saline Flush) 10 ml FLUSH ASDIRECTED PRN PRN Reason: Keep Vein Open Last Admin: 04/26/17 20:34 Dose: 10 ml Discontinued Medications Hydromorphone HCl (Dilaudid) 0.5 mg IVPUSH ONETIME ONE Stop: 04/26/17 13:13 Last Admin: 04/26/17 13:45 Dose: 0.5 mg Lactated Ringer's (Ringers, Lactated) 1,000 mls @ 150 mls/hr IV ASDIRECTED [facility] Last Admin: 04/27/17 03:19 Dose: 150 mls/hr Potassium Chloride/Sodium Chloride (Normal Saline With 20 Meq Kcl) 1,000 mls @ 125 mls/hr IV Q6H [facility] Last Admin: 04/28/17 07:05 Dose: 150 mls/hr Iopamidol (Isovue-370 (76%)) 100 ml IV . DIRECTED ONE Stop: 04/26/17 13:33 Last Admin: 04/26/17 13:50 Dose: 100 ml Lidocaine HCl (Xylocaine 2% Jelly) 5 ml MUCMEM ONETIME ONE Stop: 04/26/17 19:56 Last Admin: 04/27/17 11:13 Dose: Not Given Metoclopramide HCl (Reglan) 10 mg IVPUSH ONETIME ONE Stop: 04/26/17 12:53 Last Admin: 04/26/17 13:45 Dose: 10 mg - Exam General: Alert, Oriented, Cooperative Lungs: Normal Respiratory Effort GI/Abdominal Exam: Normal Bowel Sounds, Soft, Non-Tender, No Distention, No Mass , Other (Normal bowel sounds) - Problem List & Annotations (1) Diffuse abdominal pain SNOMED Code(s): 647931805, 848464904 Code(s): R10.84 - GENERALIZED ABDOMINAL PAIN Status: Acute Current Visit : No (2) Nausea & vomiting SNOMED Code(s): 39370453 Code(s): R11.2 - NAUSEA WITH VOMITING, UNSPECIFIED Status: Acute Current Visit: No Qualifiers: Vomiting type: unspecified Vomiting Intractability: non-intractable Qualified Code(s): R11.2 - Nausea with vomiting, unspecified (3) Hypokalemia SNOMED Code(s): 22136916 Code(s): E87.6 - HYPOKALEMIA Status: Acute Current Visit: Yes - Problem List Review Problem List Initiated/Reviewed/Updated: Yes - Plan Plan:: 1. Advance diet. If patient tolerates regular food then we can discharge.
[2017-04-28 11:39] VITALS: BP 119/78
== END 2017-04-28 12:15 | disposition home or self-care (01) ==
LOC: FB.ED 11:55 → FB.MS 15:20
PROVIDERS: ADMIT Emergency Medicine; ATTEND Family Medicine
DX: K56.7 Ileus, unspecified (principal); E87.6 Hypokalemia; Z87.19 Personal history of other diseases of the digestive system; Z86.010 Personal history of colon polyps; Z90.49 Acquired absence of other specified parts of digestive tract; Z88.0 Allergy status to penicillin; Z98.890 Other specified postprocedural states
CPT/HCPCS: 36415; 74020; 74177; 80048; 80053; 81001; 82150; 85025; 85027; 96361; 96374; 96375; 96376; 99284; G0378; J1170; J2405; J2765; J3410; J3480; J7050; J7120; Q9967

== ENCOUNTER 2019-07-04 01:00 | Emergency (ER) | payer MEDICAID, OTHER ==
--- NOTE | 2019-07-04 01:26 | EDM.PDOC ---
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 He also felt that he seemed to be twisting when he was walking and he felt off balance. He had no headache associated with this. He does have bilateral upper posterior teeth pain that he has had for several months that he rates as an 8-9/10. This is unchanged. He does report that he feels that it is hard to finish his sentences at times. He is having no problems finding words or speaking otherwise. He reports he was otherwise feeling well prior to this. He has had no nausea or vomiting. He's had no fever or chills. He's had no cough or cold type symptoms. No localized area of weakness or numbness. He reports that he ate and drink normally today. There are no other associated signs or symptoms. There are no other modifying factors. Onset: Today (10 to 10:30 PM tonight.) Duration: Constant Location: Reports: Other (Pain in his upper teeth bilaterally as above. 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 (see below) Oral/Mouth Pain Score (Numeric/FACES): 8 - Related Data Allergies Allergy/AdvReac Type Severity Reaction Status Date / Time Penicillins Allergy Rash Verified 04/26/17 12:23 Home Meds: Home Meds Multivitamin/Iron/Folic Acid [Centrum Adults Tablet] 1 tab PO DAILY 04/26/17 [ History] Past Medical History Gastrointestinal History: Reports: Colon Polyp, Pancreatitis, Other (See Below) Other Gastrointestinal History: Familial polyposis Oncologic (Cancer) History: Reports: Colon - Past Surgical History Head Surgeries/Procedures: Reports: None GI Surgical History: Reports: Appendectomy, Cholecystectomy, Colon, Colonoscopy , Other (See Below) Other GI Surgeries/Procedures: temporary colostomy with reversal, drainage tube in left upper buttock then removed Dermatological Surgical History: Reports: Other (See Below) Social & Family History - Family History GI: Reports: Colon Polyps, Other (See Below) Other GI Family History: Colon Cancer - Tobacco Use Smoking Status *Q: Never Smoker - Caffeine Use Caffeine Use: Reports: None Other Caffeine Use: 2 cups coffeee in am - Alcohol Use Alcohol Use History: No - Living Situation & Occupation Occupation: Employed Social History Comment: He is here with his significant other ED ROS GENERAL - Review of Systems Review Of Systems: See Below Constitutional: Reports: No Symptoms HEENT: Reports: Vision Change (Blurred vision as above) Respiratory: Reports: No Symptoms Cardiovascular: Reports: No Symptoms Endocrine: Reports: No Symptoms GI/Abdominal: Reports: No Symptoms : Reports: No Symptoms Musculoskeletal: Reports: No Symptoms Skin: Reports: No Symptoms Neurological: Reports: Other (Off-balance. Otherwise as above.) Hematologic/Lymphatic: Reports: No Symptoms Immunologic: Reports: No Symptoms ED EXAM, NEURO - Physical Exam Exam: See Below Exam Limited By: No Limitations General Appearance: Alert, WD/WN, No Apparent Distress Eye Exam: Bilateral Eye: EOMI, Normal Inspection, PERRL, Other (No visual field cuts) Ears: Normal External Exam, Hearing Grossly Normal Nose: Normal Inspection, Normal Mucosa, No Blood Throat/Mouth: Normal Inspection, Normal Lips, Normal Oropharynx, Normal Voice Head Exam: Atraumatic, Normocephalic Neck: Normal Inspection, Supple, Non-Tender, Full Range of Motion Respiratory/Chest: No Respiratory Distress, Lungs Clear, Normal Breath Sounds, No Accessory Muscle Use, Chest Non-Tender Cardiovascular: Normal Peripheral Pulses, Regular Rate, Rhythm, No JVD GI/Abdominal: Normal Bowel Sounds, Soft, Non-Tender, No Organomegaly, No Distention, No Mass, Pelvis Stable Neurological: Alert, Normal Mood/Affect, Normal Dorsiflexion, CN II-XII Intact, Normal Plantar Flexion, Normal Gait, Normal Reflexes, No Motor/Sensory Deficits , Other (Finger to nose is normal with no dysmetria. There is no pronator drift. Negative Romberg) Back Exam: Normal Inspection Extremities: Normal Inspection, Normal Range of Motion, No Pedal Edema, Normal Capillary Refill Skin Exam: Warm, Dry, Intact, Normal Color, No Rash Course - Vital Signs Last Recorded V/S: Last Vital Signs Temp 36.2 C 07/04/19 01:00 Pulse 78 07/04/19 01:00 Resp 18 07/04/19 01:00 BP 151/98 H 07/04/19 01:00 Pulse Ox 99 07/04/19 01:00 - Orders/Labs/Meds Orders: Active Orders 24 hr Category Date Time Status Accu Check [Blood Glucose Check, Bedside] [RC] ONETIME Care 07/04/19 01:05 Active Head wo Cont [CT] Stat Exams 07/04/19 01:26 Ordered Labs: Laboratory Tests 07/04/19 07/04/19 07/04/19 Range/Units 01:14 01:35 01:35 WBC 8.8 (4.5-12.0) X10-3/uL RBC 5.79 H (4.30-5.75) x10(6)uL Hgb 17.0 (13.5-17.8) g/dL Hct 51.0 (30.0-51.3) % MCV 88.1 (80-96) fL MCH 29.3 (27.7-33.6) pg MCHC 33.3 (32.2-35.4) g/dL RDW 12.0 (11.5-15.5) % Plt Count 302 (125-369) X10(3)uL MPV 8.6 (7.4-10.4) fL Neut % (Auto) 56.7 (46-82) % Lymph % (Auto) 33.3 (13-37) % [place] % (Auto) 5.2 (4-12) % Eos % (Auto) 4 (1.0-5.0) % Baso % (Auto) 1 (0-2) % Neut # (Auto) 4.9 (1.6-8.3) # Lymph # (Auto) 2.9 (0.6-5.0) # [place] # (Auto) 0.5 (0.0-1.3) # Eos # (Auto) 0.4 (0.0-0.8) # Baso # (Auto) 0.0 (0.0-0.2) # ESR 1 (0-15) mm/hr Sodium 140 (135-145) mmol/L Potassium 3.8 (3.5-5.3) mmol/L Chloride 102 (100-110) mmol/L Carbon Dioxide 27 (21-32) mmol/L BUN 9 (7-18) mg/dL Creatinine 1.2 (0.70-1.30) mg/dL Est Cr Clr Drug Dosing 102.39 mL/min Estimated GFR (MDRD) > 60 (>60) BUN/Creatinine Ratio 7.5 L (9-20) Glucose 97 (80-116) mg/dL POC Glucose 75 L (80-116) mg/dL Calcium 8.8 (8.6-10.2) mg/dL Total Bilirubin 0.4 (0.1-1.3) mg/dL AST 21 (5-25) IU/L ALT 62 H (12-36) U/L Alkaline Phosphatase 85 (56-112) IU/L C-Reactive Protein (0.5-0.9) mg/dL Total Protein 8.5 H (6.0-8.0) g/dL Albumin 4.5 (3.5-5.2) g/dL Globulin 4.0 g/dL Albumin/Globulin Ratio 1.1 TSH, Ultra Sensitive (0.36-3.74) IU/mL 07/04/19 Range/Units 01:35 WBC (4.5-12.0) X10-3/uL RBC (4.30-5.75) x10(6)uL Hgb (13.5-17.8) g/dL Hct (30.0-51.3) % MCV (80-96) fL MCH (27.7-33.6) pg MCHC (32.2-35.4) g/dL RDW (11.5-15.5) % Plt Count (125-369) X10(3)uL MPV (7.4-10.4) fL Neut % (Auto) (46-82) % Lymph % (Auto) (13-37) % [place] % (Auto) (4-12) % Eos % (Auto) (1.0-5.0) % Baso % (Auto) (0-2) % Neut # (Auto) (1.6-8.3) # Lymph # (Auto) (0.6-5.0) # [place] # (Auto) (0.0-1.3) # Eos # (Auto) (0.0-0.8) # Baso # (Auto) (0.0-0.2) # ESR (0-15) mm/hr Sodium (135-145) mmol/L Potassium (3.5-5.3) mmol/L Chloride (100-110) mmol/L Carbon Dioxide (21-32) mmol/L BUN (7-18) mg/dL Creatinine (0.70-1.30) mg/dL Est Cr Clr Drug Dosing mL/min Estimated GFR (MDRD) (>60) BUN/Creatinine Ratio (9-20) Glucose (80-116) mg/dL POC Glucose (80-116) mg/dL Calcium (8.6-10.2) mg/dL Total Bilirubin (0.1-1.3) mg/dL AST (5-25) IU/L ALT (12-36) U/L Alkaline Phosphatase (56-112) IU/L C-Reactive Protein 0.4 L (0.5-0.9) mg/dL Total Protein (6.0-8.0) g/dL Albumin (3.5-5.2) g/dL Globulin g/dL Albumin/Globulin Ratio TSH, Ultra Sensitive 1.16 (0.36-3.74) IU/mL Accu-Chek was 75 mg/dL. - Radiology Interpretation Free Text/Narrative:: CT scan of the head shows no acute abnormality per the [facility] radiologist. - Re-Assessments/Exams Free Text/Narrative Re-Assessment/Exam: 07/04/19 02:00: Patient is awake, alert and appropriate. He has been neurologically stable while in the emergency department. He has ambulated without problems. His blood work is all reassuringly normal. The CT scan of his head was normal as well. I am unsure why he had his symptoms tonight. I do not see any serious or life-threatening problem at this point. I have advised him to follow-up with Dr. Coulter. I will give him 2 days off of work. Departure - Departure Time of Disposition: 02:10 Disposition: Home, Self-Care 01 Condition: Good Clinical Impression: Blurred vision, bilateral, Disequilibrium - Discharge Information Instructions: Blurred Vision, Adult Referrals: PCP,None [Primary Care Provider] - Forms: ED Department Discharge, ED Return to Work/School Form Additional Instructions: I am unsure why you were having the symptoms of blurred vision and disequilibrium. Your blood tests and the CT scan of your head were all reassuringly normal. You should rest. You should drink plenty of fluids. No work for the next 2 days. Follow-up with Dr. Coulter by the first of next week. Back to the emergency department for localized area of weakness or numbness, severe headache, unrelenting vomiting or any other concerning sign or symptom. - My Orders Last 24 Hours: My Active Orders 07/04/19 01:05 Accu Check [Blood Glucose Check, Bedside] [RC] ONETIME 07/04/19 01:26 Head wo Cont [CT] Stat - Assessment/Plan Last 24 Hours: My Active Orders 07/04/19 01:05 Accu Check [Blood Glucose Check, Bedside] [RC] ONETIME 07/04/19 01:26 Head wo Cont [CT] Stat
[2019-07-04 02:25] VITALS: BP 148/103; PULSE 84
== END 2019-07-04 02:20 | disposition home or self-care (01) ==
LOC: FB.ED 01:00
DX: H53.8 Other visual disturbances (principal); E87.8 Other disorders of electrolyte and fluid balance, not elsewhere classified; I10 Essential (primary) hypertension; Z88.0 Allergy status to penicillin
CPT/HCPCS: 36415; 70450; 80053; 82962; 84443; 85025; 85651; 86140; 99284-25

== ENCOUNTER 2019-09-01 22:42 | Emergency (ER) | payer OTHER ==
[2019-09-01] MEDS ORDERED: Sodium Chloride 0.9% 1,000 ML IV ONE (23:05)
--- NOTE | 2019-09-01 23:26 | EDM.PDOC ---
ED HPI GENERAL MEDICAL PROBLEM - General Chief Complaint: Drug or Alcohol Abuse Stated Complaint: ABDOMINAL PAIN Time Seen by Provider: 09/01/19 23:00 Source of Information: Reports: Patient History Limitations: Reports: No Limitations - History of Present Illness INITIAL COMMENTS - FREE TEXT/NARRATIVE: pt comes from home by EMS , for medication over dose, pt took 3000 mg tylenol and a 150 tablets Benadryl 25 mg each, his is alert and oriented on arrival with stable signs, states he took those bills because of recurrent abd pain that he has been having for almost 4 years since colon resection, pt denies any suicidal ideations, report recurrent chronic epigastric sharp pain, denies any nausea, fever , chills, diarrhea or any fever or chills or any other associated sx or any other medical concerns. pt report Hx of depression , denies any suicidal ideation or any hallucinations , or any illicit drug use, he is and lives alone at this time. pt report Hx of appendectomy, cholecystectomy, and colon resection after a Hx of colon cancer. mid abdomen Pain Score (Numeric/FACES): 3 - Related Data Allergies Allergy/AdvReac Type Severity Reaction Status Date / Time Penicillins Allergy Rash Verified 09/01/19 22:57 Home Meds: Home Meds NK [No Known Home Meds] 09/01/19 [History] Past Medical History - Past Health History Medical/Surgical History: Denies Medical/Surgical History HEENT History: Reports: None Cardiovascular History: Reports: None Respiratory History: Reports: None Gastrointestinal History: Reports: Colon Polyp, Pancreatitis, Other (See Below) Other Gastrointestinal History: Familial polyposis Genitourinary History: Reports: None 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 Family Hx colon Ca Dermatologic History: Reports: None - Infectious Disease History Infectious Disease History: Reports: None - Past Surgical History Head Surgeries/Procedures: Reports: None GI Surgical History: Reports: Appendectomy, Cholecystectomy, Colon, Colonoscopy , Other (See Below) Other GI Surgeries/Procedures: temporary colostomy with reversal, drainage tube in left upper buttock then removed Dermatological Surgical History: Reports: Other (See Below) Social & Family History - Family History Family Medical History: Noncontributory GI: Reports: Colon Polyps, Other (See Below) Other GI Family History: Colon Cancer - Caffeine Use Caffeine Use: Reports: None Other Caffeine Use: 2 cups coffeee in am - Living Situation & Occupation Occupation: Employed ED ROS GENERAL - Review of Systems Review Of Systems: See Below Constitutional: Reports: No Symptoms HEENT: Reports: No Symptoms Respiratory: Reports: No Symptoms Cardiovascular: Reports: No Symptoms GI/Abdominal: Reports: Abdominal Pain. Denies: Anorexia, Constipation, Diarrhea , Nausea, Vomiting Musculoskeletal: Reports: No Symptoms Skin: Reports: No Symptoms Neurological: Reports: No Symptoms ED EXAM, GENERAL - Physical Exam Exam: See Below Exam Limited By: No Limitations General Appearance: Alert, Lethargic Ears: Normal External Exam, Normal TMs Throat/Mouth: Normal Inspection, Normal Oropharynx Head: Atraumatic Neck: Normal Inspection Respiratory/Chest: No Respiratory Distress, Lungs Clear, Normal Breath Sounds Cardiovascular: Normal Peripheral Pulses, Regular Rate, Rhythm GI/Abdominal: Normal Bowel Sounds, Soft, Non-Tender, No Distention Back Exam: Normal Inspection Extremities: Normal Inspection, Normal Range of Motion Neurological: Alert, Oriented, CN II-XII Intact, Normal Reflexes Psychiatric: Normal Affect Skin Exam: Warm Course - Vital Signs Text/Narrative:: xray shows no acute findings, labs are unremarkable, abd on exam is soft, nontender and does not show signs of acute abd. this is a recurrent chronic pain for pt. pt has overdosed on antihistamines, EKG shows no acute changes, pt maintained stable vitals and maintained own airway, was monitored here closely while being hydrated , and was reassessed in the morning, pt re-examination is nl and he is stable for discharge home. pt to follow with pcp in 2-3 days for re-check on mng of recurrent chronic abd pain. pt was given toradol for pain here. Last Recorded V/S: Last Vital Signs Temp 36.7 C 09/01/19 22:50 Pulse 121 H 09/01/19 22:50 Resp 16 09/01/19 22:50 BP 131/80 09/01/19 22:50 Pulse Ox 100 09/01/19 22:50 - Orders/Labs/Meds Orders: Active Orders 24 hr Category Date Time Status EKG Documentation Completion [RC] ASDIRECTED Care 09/01/19 23:06 Active Abdomen 2V AP Flat Upright [CR] Stat Exams 09/01/19 23:25 Taken DRUG SCREEN, URINE ALERE [URCHEM] Stat Lab 09/01/19 23:05 Ordered Sodium Chloride 0.9% [Normal Saline] 1,000 ml Med 09/01/19 23:05 Active IV .BOLUS Sodium Chloride 0.9% [Normal Saline] 1,000 ml Med 09/02/19 01:30 Active IV ASDIRECTED EKG 12 Lead [EK] Routine Ther 09/01/19 22:50 Ordered Medication Orders Sodium Chloride (Normal Saline) 1,000 mls @ 999 drops/hr IV .BOLUS ONE Stop: 09/02/19 14:05 Last Admin: 09/02/19 00:07 Dose: 999 drops/hr Sodium Chloride (Normal Saline) 1,000 mls @ 200 mls/hr IV ASDIRECTED TANO Last Admin: 09/02/19 01:30 Dose: 200 mls/hr Labs: Laboratory Tests 09/01/19 09/01/19 09/01/19 Range/Units 23:38 23:38 23:38 WBC 9.6 (4.5-12.0) X10-3/uL RBC 5.08 (4.30-5.75) x10(6)uL Hgb 15.3 (13.5-17.8) g/dL Hct 44.6 (30.0-51.3) % MCV 87.7 (80-96) fL MCH 30.1 (27.7-33.6) pg MCHC 34.3 (32.2-35.4) g/dL RDW 12.4 (11.5-15.5) % Plt Count 288 (125-369) X10(3)uL MPV 8.4 (7.4-10.4) fL Neut % (Auto) 87.6 H (46-82) % Lymph % (Auto) 7.9 L (13-37) % [place] % (Auto) 4.0 (4-12) % Eos % (Auto) 0 L (1.0-5.0) % Baso % (Auto) 0 (0-2) % Neut # (Auto) 8.4 H (1.6-8.3) # Lymph # (Auto) 0.8 (0.6-5.0) # [place] # (Auto) 0.4 (0.0-1.3) # Eos # (Auto) 0.0 (0.0-0.8) # Baso # (Auto) 0.0 (0.0-0.2) # Sodium 142 (135-145) mmol/L Potassium 3.6 (3.5-5.3) mmol/L Chloride 104 (100-110) mmol/L Carbon Dioxide 25 (21-32) mmol/L BUN 15 (7-18) mg/dL Creatinine 1.2 (0.70-1.30) mg/dL Est Cr Clr Drug Dosing TNP Estimated GFR (MDRD) > 60 (>60) BUN/Creatinine Ratio 12.5 (9-20) Glucose 127 H (80-116) mg/dL Calcium 9.1 (8.6-10.2) mg/dL Total Bilirubin 0.5 (0.1-1.3) mg/dL AST 29 H D (5-25) IU/L ALT 65 H (12-36) U/L Alkaline Phosphatase 68 (56-112) IU/L Total Protein 7.6 (6.0-8.0) g/dL Albumin 4.3 (3.5-5.2) g/dL Globulin 3.3 g/dL Albumin/Globulin Ratio 1.3 Amylase 51 (25-115) U/L Lipase (73-393) U/L Salicylates 0.3 L (<2.8) mg/dL Acetaminophen 16 (<2) ug/mL 09/01/19 Range/Units 23:38 WBC (4.5-12.0) X10-3/uL RBC (4.30-5.75) x10(6)uL Hgb (13.5-17.8) g/dL Hct (30.0-51.3) % MCV (80-96) fL MCH (27.7-33.6) pg MCHC (32.2-35.4) g/dL RDW (11.5-15.5) % Plt Count (125-369) X10(3)uL MPV (7.4-10.4) fL Neut % (Auto) (46-82) % Lymph % (Auto) (13-37) % [place] % (Auto) (4-12) % Eos % (Auto) (1.0-5.0) % Baso % (Auto) (0-2) % Neut # (Auto) (1.6-8.3) # Lymph # (Auto) (0.6-5.0) # [place] # (Auto) (0.0-1.3) # Eos # (Auto) (0.0-0.8) # Baso # (Auto) (0.0-0.2) # Sodium (135-145) mmol/L Potassium (3.5-5.3) mmol/L Chloride (100-110) mmol/L Carbon Dioxide (21-32) mmol/L BUN (7-18) mg/dL Creatinine (0.70-1.30) mg/dL Est Cr Clr Drug Dosing Estimated GFR (MDRD) (>60) BUN/Creatinine Ratio (9-20) Glucose (80-116) mg/dL Calcium (8.6-10.2) mg/dL Total Bilirubin (0.1-1.3) mg/dL AST (5-25) IU/L ALT (12-36) U/L Alkaline Phosphatase (56-112) IU/L Total Protein (6.0-8.0) g/dL Albumin (3.5-5.2) g/dL Globulin g/dL Albumin/Globulin Ratio Amylase (25-115) U/L Lipase 206 (73-393) U/L Salicylates (<2.8) mg/dL Acetaminophen (<2) ug/mL Meds: Medications Generic Name Dose Route Start Last Admin Trade Name Freq PRN Reason Stop Dose Admin Sodium Chloride 1,000 mls @ 999 drops/hr 09/01/19 23:05 09/02/19 00:07 Normal Saline IV 09/02/19 14:05 999 drops/hr .BOLUS ONE Administration Sodium Chloride 1,000 mls @ 200 mls/hr 09/02/19 01:30 09/02/19 01:30 Normal Saline IV 200 mls/hr ASDIRECTED TANO Administration Discontinued Medications Generic Name Dose Route Start Last Admin Trade Name Freq PRN Reason Stop Dose Admin Ketorolac Tromethamine 30 mg 09/02/19 01:23 09/02/19 01:30 Toradol IVPUSH 09/02/19 01:24 30 mg ONETIME ONE Administration Departure - Departure Time of Disposition: 07:01 Disposition: Home, Self-Care 01 Clinical Impression: Chronic abdominal pain - Discharge Information Referrals: Colton Coulter MD [Primary Care Provider] - Forms: ED Department Discharge - My Orders Last 24 Hours: My Active Orders 09/01/19 22:50 EKG 12 Lead [EK] Routine 09/01/19 23:05 DRUG SCREEN, URINE ALERE [URCHEM] Stat Sodium Chloride 0.9% [Normal Saline] 1,000 ml IV .BOLUS 09/01/19 23:06 EKG Documentation Completion [RC] ASDIRECTED 09/01/19 23:25 Abdomen 2V AP Flat Upright [CR] Stat 09/02/19 01:30 Sodium Chloride 0.9% [Normal Saline] 1,000 ml IV ASDIRECTED - Assessment/Plan Last 24 Hours: My Active Orders 09/01/19 22:50 EKG 12 Lead [EK] Routine 09/01/19 23:05 DRUG SCREEN, URINE ALERE [URCHEM] Stat Sodium Chloride 0.9% [Normal Saline] 1,000 ml IV .BOLUS 09/01/19 23:06 EKG Documentation Completion [RC] ASDIRECTED 09/01/19 23:25 Abdomen 2V AP Flat Upright [CR] Stat 09/02/19 01:30 Sodium Chloride 0.9% [Normal Saline] 1,000 ml IV ASDIRECTED
[2019-09-02 00:16] LABS: ACETAMINOPHEN 16 ug/mL (<2)
[2019-09-02] MEDS ORDERED: Ketorolac 30 MG/ML SDV IVPUSH ONE (01:23)
[2019-09-02] MEDS ORDERED: Sodium Chloride 0.9% 1,000 ML IV SCH (01:30)
[2019-09-02 07:13] VITALS: BP 127/74; PULSE 91
--- NOTE | 2019-09-02 20:27 | CR ---
INDICATION: Abdomen pain left lower quadrant x3 days. ABDOMEN, TWO VIEWS: Four images of the abdomen in supine and upright projections were obtained 09/01/19 and compared with 04/26/17. Overlying EKG leads are noted. Bony structures appear to be grossly intact. The pattern of gas and feces is nonspecific without evidence of free air or obstruction. Clips compatible with cholecystectomy are again noted. No organomegaly, mass lesions or pathologic calcifications were suggested. No distended loops of bowel were seen. IMPRESSION: Nonspecific post cholecystectomy abdomen. MTDD
== END 2019-09-02 08:15 | disposition home or self-care (01) ==
LOC: FB.ED 22:42
DX: R10.9 Unspecified abdominal pain (principal); G89.29 Other chronic pain; Z88.0 Allergy status to penicillin
CPT/HCPCS: 36415; 74019; 80053; 80305-QW; 82150; 83690; 85025; 93005; 96360; 96361; 99284-25; G0480; J1885; J7030

== ENCOUNTER 2019-12-20 05:42 | Emergency (ER) | payer MEDICAID, OTHER ==
[2019-12-20] MEDS: Sodium Chloride 0.9% 1,000 ML IV SCH ×2 (06:05→07:10)
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
[2019-12-20 11:53] VITALS: BP 134/97; PULSE 112
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
== END 2019-12-20 11:55 | disposition home or self-care (01) ==
LOC: FB.ED 05:42
DX: T50.5X2A Poisoning by appetite depressants, intentional self-harm, initial encounter (principal); T45.0X2A Poisoning by antiallergic and antiemetic drugs, intentional self-harm, initial encounter; F10.129 Alcohol abuse with intoxication, unspecified; Z88.0 Allergy status to penicillin
CPT/HCPCS: 36415; 73090; 80048; 80053; 80305; 80307; 85025; 96360; 96361; 99284; J7030